=== PATIENT | male | born 1940 | race Caucasian/White ===

== ENCOUNTER → 2018-01-01 | Outpatient (CLI) | payer MEDICARE, OTHER ==
[2018-01-01 10:35] LABS: CHOLESTEROL 100 mg/dL (<200); HDL CHOLESTEROL 42 mg/dL (>40); LDL CHOLESTEROL 40 mg/dL (<100); SERUM ASSESSMENT Clear; TC:HDL 2.4 Ratio (Not establshd); TRIGLYCERIDE 94 mg/dL (<150); VLDL 19 mg/dL (<40)
== END ==
LOC: M.LAB 09:52
PROVIDERS: Internal Medicine Cardiovascular Disease
DX: E78.5 Hyperlipidemia, unspecified (principal)

== ENCOUNTER → 2019-07-21 | Outpatient (CLI) | payer MEDICARE, OTHER ==
[~2019-07-21] MED LIST: ASPIR 8181 M1 PO; ASPIRIN325 PO; CITRACAL PO; FISH OIL 1,001000 M2 PO; FOLIC ACID1 MG PO; LIPITOR80 MG PO; LISINOPRIL40 MG PO; VITAMIN B12 PO; VITAMIN D1000 UNI1 PO; [UNRECOGNIZED DRUG - OTHER] PO; [UNRECOGNIZED DRUG - OTHER] PO
[2019-07-21 08:39] LABS: CREATININE 1.3 mg/dL (0.6-1.3)
== END ==
LOC: M.LAB 07-15 16:30
PROVIDERS: Psychiatry & Neurology Neuromuscular Medicine
DX: R25.1 Tremor, unspecified (principal); Z87.898 Personal history of other specified conditions

== ENCOUNTER → 2019-08-11 | Outpatient (CLI) | payer MEDICARE, OTHER ==
[2019-08-11 09:13] LABS: ALBUMIN 3.5 g/dL (3.4-5.0); CALCIUM 8.6 mg/dL (8.5-10.1); CREATININE 1.2 mg/dL (0.6-1.3); POTASSIUM 4.2 mmol/L (3.5-5.1); TOTAL BILIRUBIN 0.6 mg/dL (<0.1-1.0); TOTAL PROTEIN 6.7 g/dL (6.4-8.2)
== END ==
LOC: M.LAB 08:24
PROVIDERS: Psychiatry & Neurology Neuromuscular Medicine
DX: R25.1 Tremor, unspecified (principal); Z87.898 Personal history of other specified conditions

== ENCOUNTER → 2021-01-11 | Outpatient (CLI) | payer MEDICARE, OTHER ==
[2021-01-11 13:08] LABS: CHOLESTEROL 85 mg/dL (<200); HDL CHOLESTEROL 40 mg/dL (>40); LDL CHOLESTEROL 10 mg/dL (<100); SERUM ASSESSMENT Clear; TC:HDL 2.1 Ratio (Not establshd); TRIGLYCERIDE 175 mg/dL (<150); VLDL 35 mg/dL (<40)
[2021-01-13 03:05] LABS: LDL (DIRECT) CHOL 36 mg/dL (0-99)
== END ==
LOC: M.LAB 12:34
PROVIDERS: ATTEND Internal Medicine Cardiovascular Disease
DX: E78.5 Hyperlipidemia, unspecified (principal)